=== PATIENT | male | born 1980 | race Caucasian/White ===

== ENCOUNTER → 2017-12-11 11:12 | Outpatient (CLI) | payer BC, SELFPAY ==
[2017-12-11 18:37] LABS: Basophils % 0.4 % (0.1-2.0); Eosinophils # 0.2 K/mm3 (0.0-0.4); Eosinophils % 2.4 % (0.1-12.0); Hematocrit 47.9 % (42.0-52.0); Hemoglobin 16.3 g/dL (14.1-18.0); Lymphocytes # 1.3 K/mm3 (0.7-4.5); Lymphocytes % 20.8 K/mm3 (10-50); Mean Corpuscular HGB Conc 34.1 g/dL (31.8-35.4); Mean Corpuscular Hemoglobin 30.8 pg (27.0-31.2); Mean Corpuscular Volume 90.4 fl (80-94); Mean Platelet Volume 9.8 fl (7.4-10.4); Monocytes # 0.5 K/mm3 (0.1-1.0); Monocytes % 7.9 % (1.7-9.3); Neutrophils # 4.3 K/mm3 (1.8-7.8); Neutrophils % 68.5 % (37.0-80.0); Platelet Count 229 K/mm3 (142-424); Red Blood Count 5.29 M/mm3 (4.60-6.20); Red Cell Distribution Width 12.2 % (11.5-17.5); White Blood Count 6.3 K/mm3 (4.8-10.8)
[2017-12-11 18:51] LABS: Alanine Aminotransferase 66 U/L (12-78); Albumin Level 4.7 gm/dL (3.4-5.0); Albumin/Globulin Ratio 1.5 (1.1-1.8); Alkaline Phosphatase 56 U/L (46-116); Anion Gap 13.7 mEq/L (5-15); Aspartate Amino Transferase 26 U/L (15-37); Bilirubin,Total 0.6 mg/dL (0.2-1.0); Blood Urea Nitrogen 18 mg/dL (7-18); Carbon Dioxide 28 mmol/L (21.0-32.0); Chloride 105 mmol/L (98-107); Chol/HDL Ratio 4.4 (1-3.5); Cholesterol 170 mg/dL (140-200); Creatinine,Serum 1.04 mg/dL (0.70-1.30); Estimated Glomerular Filt Rate 80 ml/min (>60); Free Thyroxine Index 3.4 ug/dL (5.93-13.13); GFR (African American) 96 ML/MIN (>60); Globulin 3.2 gm/dl (1.3-3.2); Glucose 85 mg/dL (74-106); HDL Cholesterol 39 mg/dL (27-67); LDL Cholesterol 99 mg/dL (0-130); Potassium 4.7 mmoL/L (3.5-5.1); Sodium 142 mmol/L (136-145); T4 (Thyroxine) 9.7 ug/dl (4.7-13.3); Thyroid Stimulating Hormone 2.04 uIU/ml (0.358-3.740); Total Protein,Serum 7.9 gm/dL (6.4-8.2); Triglycerides 161 mg/dL (30-200); Triiodothryronine (T3) Uptake 35 % (31-39); VLDL Cholesterol 32 mg/dL (0-40)
[2017-12-16 06:13] LABS: Vitamin B12 534 pg/mL (232-1245)
[2017-12-16 06:14] LABS: Vitamin D 25 Hydroxy 22.5 ng/mL (30.0-100.0)
== END ==
PROVIDERS: Visit Provider Nurse Practitioner Family
DX: R53.83 Other fatigue (principal)
CPT/HCPCS: 80053; 80061; 82607; 82652; 84436; 84443; 84479; 85025

== ENCOUNTER → 2018-05-05 08:00 | Outpatient (CLI) | payer BC, SELFPAY ==
[2018-05-07 11:19] LABS: Occult Blood,Stool Negative (Negative)
== END ==
PROVIDERS: PCP Nurse Practitioner Family; Visit Provider Nurse Practitioner Family
DX: Z12.11 Encounter for screening for malignant neoplasm of colon (principal)
CPT/HCPCS: 82272; G0328

== ENCOUNTER → 2018-05-06 08:00 | Outpatient (CLI) | payer BC, SELFPAY ==
[2018-05-07 11:18] LABS: Occult Blood,Stool Negative (Negative)
== END ==
PROVIDERS: PCP Nurse Practitioner Family; Visit Provider Nurse Practitioner Family
DX: Z12.11 Encounter for screening for malignant neoplasm of colon (principal)
CPT/HCPCS: 82272; G0328

== ENCOUNTER → 2018-05-07 10:19 | Outpatient (CLI) | payer BC, SELFPAY ==
[2018-05-07 11:18] LABS: Occult Blood,Stool Negative (Negative)
== END ==
PROVIDERS: PCP Nurse Practitioner Family; Visit Provider Nurse Practitioner Family
DX: Z12.11 Encounter for screening for malignant neoplasm of colon (principal)
CPT/HCPCS: 82272; G0328

== ENCOUNTER → 2018-12-29 17:58 | Outpatient (CLI) | payer BC, SELFPAY ==
[2018-12-29 18:41] LABS: Basophils % 0.4 % (0.1-2.0); Eosinophils # 0.1 K/mm3 (0.0-0.4); Eosinophils % 2.4 % (0.1-12.0); Hematocrit 45.2 % (42.0-52.0); Hemoglobin 15.9 g/dL (14.1-18.0); Lymphocytes # 1.5 K/mm3 (0.7-4.5); Mean Corpuscular HGB Conc 35.2 g/dL (31.8-35.4); Mean Corpuscular Hemoglobin 30.6 pg (27.0-31.2); Mean Corpuscular Volume 86.9 fl (80-94); Mean Platelet Volume 9.9 fl (7.4-10.4); Monocytes # 0.4 K/mm3 (0.1-1.0); Monocytes % 8.6 % (1.7-9.3); Neutrophils # 2.9 K/mm3 (1.8-7.8); Neutrophils % 58.7 % (37.0-80.0); Platelet Count 236 K/mm3 (142-424); Red Cell Distribution Width 12.3 % (11.5-17.5)
[2018-12-29 19:07] LABS: Alanine Aminotransferase 93 U/L (12-78); Albumin Level 4.5 gm/dL (3.4-5.0); Albumin/Globulin Ratio 1.4 (1.1-1.8); Alkaline Phosphatase 54 U/L (46-116); Aspartate Amino Transferase 25 U/L (15-37); Bilirubin,Total 0.5 mg/dL (0.2-1.0); Blood Urea Nitrogen 15 mg/dL (7-18); Calcium 9.1 mg/dL (8.5-10.1); Carbon Dioxide 25 mmol/L (21.0-32.0); Chloride 106 mmol/L (98-107); Chol/HDL Ratio 4.9 (1-3.5); Cholesterol 173 mg/dL (140-200); Estimated Glomerular Filt Rate 67 ml/min (>60); GFR (African American) 81 ML/MIN (>60); Globulin 3.2 gm/dl (1.3-3.2); Glucose 110 mg/dL (74-106); HDL Cholesterol 35 mg/dL (27-67); LDL Cholesterol 75 mg/dL (0-130); Sodium 141 mmol/L (136-145); T4 (Thyroxine) 8.1 ug/dl (4.7-13.3); Thyroid Stimulating Hormone 3.91 uIU/ml (0.358-3.740); Total Protein,Serum 7.7 gm/dL (6.4-8.2); Triglycerides 313 mg/dL (30-200); VLDL Cholesterol 63 mg/dL (0-40)
[2018-12-31 10:39] LABS: PSA, Free 0.28 ng/mL; Testosterone,Total 205 ng/dL (264-916); Vitamin D 25 Hydroxy 22.6 ng/mL (30.0-100.0)
[2018-12-31 17:25] LABS: Hemoglobin A1C 5.2 % (0.0-7.0)
== END ==
PROVIDERS: Visit Provider Nurse Practitioner Family
DX: E07.9 Disorder of thyroid, unspecified (principal); R53.83 Other fatigue; E78.1 Pure hyperglyceridemia; R73.9 Hyperglycemia, unspecified
CPT/HCPCS: 80053; 80061; 82652; 83036; 84153; 84154; 84403; 84436; 84443; 85025

== ENCOUNTER → 2019-02-02 07:10 | Outpatient (CLI) | payer BC, SELFPAY ==
[2019-02-03 08:17] LABS: FSH 5.4 mIU/mL (1.5-12.4); LH 4.6 mIU/mL (1.7-8.6)
[2019-02-03 18:57] LABS: Prolactin 9.4 ng/mL (4.0-15.2)
== END ==
PROVIDERS: Visit Provider Urology
DX: R79.89 Other specified abnormal findings of blood chemistry (principal)
CPT/HCPCS: 36415; 83001; 83002; 84146; 84403

== ENCOUNTER → 2019-04-06 18:27 | Outpatient (CLI) | payer BC, SELFPAY ==
[2019-04-06 21:05] LABS: T4 (Thyroxine) 9.8 ug/dl (4.7-13.3); Thyroid Stimulating Hormone 2.66 uIU/ml (0.358-3.740)
[2019-04-08 09:47] LABS: Vitamin D 25 Hydroxy 38.5 ng/mL (30.0-100.0)
== END ==
PROVIDERS: Visit Provider Nurse Practitioner Family
DX: E07.9 Disorder of thyroid, unspecified (principal); E55.9 Vitamin D deficiency, unspecified
CPT/HCPCS: 82652; 84436; 84443

== ENCOUNTER → 2020-03-02 16:55 | Outpatient (CLI) | payer BC, SELFPAY ==
[2020-03-02 17:44] LABS: Chloride 103 mmol/L (98-107); Sodium 140 mmol/L (136-145)
[2020-03-02 17:45] LABS: Potassium 3.9 mmoL/L (3.5-5.1)
[2020-03-02 17:47] LABS: Alanine Aminotransferase 39 U/L (12-78); Albumin Level 4.7 g/dl (3.5-5.0); Albumin/Globulin Ratio 1.8 (1.1-1.8); Alkaline Phosphatase 39 U/L (38-126); Anion Gap 15.9 mEq/L (5-15); Aspartate Amino Transferase 27 U/L (17-59); Bilirubin,Total 0.7 mg/dl (0.2-1.3); Blood Urea Nitrogen 14 mg/dl (9-20); Calcium 9.6 mg/dl (8.4-10.2); Carbon Dioxide 25 mmol/L (22.0-30.0); Cholesterol 176 mg/dl (140-200); Estimated Glomerular Filt Rate 82 ml/min (>60); GFR (African American) 99 ML/MIN (>60); Globulin 2.6 g/dL (1.3-3.2); Glucose 119 mg/dl (74-100); Total Protein,Serum 7.3 g/dl (6.3-8.2); Triglycerides 199 mg/dl (30-150); VLDL Cholesterol 40 mg/dL (0-40)
[2020-03-02 17:48] LABS: Chol/HDL Ratio 4.1 (1-3.5); HDL Cholesterol 43 mg/dl (40-60)
[2020-03-02 17:58] LABS: Direct LDL Cholesterol 115.79 mg/dL (100-129)
[2020-03-02 18:05] LABS: Basophils % 0.5 % (0.1-2.0); Eosinophils # 0.3 K/mm3 (0.0-0.4); Eosinophils % 5.9 % (0.1-12.0); Lymphocytes # 1.2 K/mm3 (0.7-4.5); Lymphocytes % 23.2 % (10-50); Mean Corpuscular HGB Conc 34.7 g/dL (31.8-35.4); Mean Corpuscular Hemoglobin 30.8 pg (27.0-31.2); Mean Corpuscular Volume 88.7 fl (80-94); Mean Platelet Volume 10.1 fl (7.4-10.4); Monocytes # 0.3 K/mm3 (0.1-1.0); Monocytes % 5.9 % (1.7-9.3); Neutrophils # 3.4 K/mm3 (1.8-7.8); Neutrophils % 64.6 % (37.0-80.0); Platelet Count 198 K/mm3 (142-424); Red Blood Count 5.52 M/mm3 (4.60-6.20); Red Cell Distribution Width 12.7 % (11.5-17.5); T4 (Thyroxine) 7.5 ug/dl (5.53-11.0); White Blood Count 5.2 K/mm3 (4.8-10.8)
[2020-03-02 18:19] LABS: Thyroid Stimulating Hormone 2.13 uIU/mL (0.465-4.68)
== END ==
PROVIDERS: Visit Provider Nurse Practitioner Family
DX: E07.9 Disorder of thyroid, unspecified (principal); E66.9 Obesity, unspecified
CPT/HCPCS: 80053; 80061; 84436; 84443; 85025

== ENCOUNTER → 2020-03-30 17:23 | Outpatient (CLI) | payer BC, SELFPAY ==
[2020-03-30 18:10] LABS: 25-OH Vitamin D, Total 35.5 ng/mL (30-100)
[2020-03-30 18:58] LABS: Hemoglobin A1C 5.1 % (4.0-6.0)
== END ==
PROVIDERS: Visit Provider Nurse Practitioner Family
DX: R73.9 Hyperglycemia, unspecified (principal); E55.9 Vitamin D deficiency, unspecified
CPT/HCPCS: 82306; 83036

== ENCOUNTER 2021-05-26 12:41 | Emergency (ER) | payer BC, SELFPAY ==
[2021-05-26 13:11] VITALS: BP 135/79; PULSE 75; RESP 16; TEMP 36.8; O2SAT 97; BMI 31.8
[2021-05-26 13:16] VITALS: BP 135/79; PULSE 75; RESP 16; TEMP 36.8
--- NOTE | 2021-05-26 13:21 | HMH.EDUTC ---
[facility] [place] Disposition Clinical Impression: Sinusitis Qualifiers: Sinusitis location: unspecified location Chronicity: acute Recurrence: non-recurrent Qualified Code(s): J01.90 - Acute sinusitis, unspecified Otitis media Qualifiers: Otitis media type: suppurative Chronicity: acute Laterality: left Recurrence: non-recurrent Spontaneous tympanic membrane rupture: without spontaneous rupture Qualified Code(s): H66.002 - Acute suppurative otitis media without spontaneous rupture of ear drum, left ear Disposition: Home, Self-Care Condition on Discharge: Good Instructions: Middle Ear Infection, DI for Sinusitis Additional Instructions: Drink plenty of fluids. Take tylenol or ibuprofen for pain or fever. Take the medications as directed. Follow up with your regular doctor. GO TO THE ER FOR ANY WORSENING SYMPTOMS Prescriptions: Amoxicillin/Potassium Clav [Augmentin 875-125 Tablet] 1 tab PO Q12H 10 Days #20 tab Transmission Status: Received by [id number] predniSONE [Prednisone 20mg Tab] 20 mg PO BID 4 Days #8 tab Transmission Status: Received by [id number] Referrals: Tirso Weston APRN [Primary Care Provider] - Time of Disposition: 13:26 Medical Decision Making - Medical Records Medical records reviewed: No: I reviewed the patient's medical records. - Nilo Inquiry Pt receiving controlled substance: No Vital Signs: 05/26/21 13:11 05/26/21 13:16 Temperature 98.2 F 98.2 F Temperature Source Oral Pulse Rate 75 Pulse Rate [Left] 75 Respiratory Rate 16 16 Blood Pressure 135/79 Blood Pressure [Right Arm] 135/79 Blood Pressure Mean [Right Arm] 97 02 Sat by Pulse Oximetry 97 [facility] [place] HPI - General Stated complaint: ear pain Time Seen by Provider: 05/26/21 13:21 Mode of Arrival: Ambulatory Source of Information: Patient Limitations: No Limitations Description of Symptoms (Recalled from Triage Doc. by RN): pt c/o L ear ache HEENT Symptoms (Recalled from RN notes): Yes (L ear ache) Resp Symptoms (Recalled from RN notes): No Skin Symptoms (Recalled from RN notes): No MS Symptoms (Recalled from RN notes): No Functional Status (Recalled from RN notes): na - History of Present Illness Provider Complaint: He c/o left ear pain and sinus congestion for the past 2 days. He gets sinus infections this time of year usually. He denies any fever or chills. - Related Data Previous Rx's Medication Instructions Recorded fluticasone propionate 50 See Rx Instructions .ROUTE 03/12/21 mcg/actuation nasal .COMPLEX #16 gram spray,suspension bupropion HCl 75 mg tablet See Rx Instructions .ROUTE 05/08/21 .COMPLEX #30 tab levothyroxine 75 mcg tablet See Rx Instructions .ROUTE 05/08/21 .COMPLEX #30 tab Amoxicillin/Potassium Clav 1 tab PO Q12H 10 Days #20 tab 05/26/21 [Augmentin 875-125 Tablet] predniSONE [Prednisone 20mg 20 mg PO BID 4 Days #8 tab 05/26/21 Tab] Allergies Allergy/AdvReac Type Severity Reaction Status Date / Time No Known Allergies Allergy Verified 03/30/20 14:12 - Worker's Comp Is this a Worker's Comp case?: No [facility] History - Hepatitis A Screen Drug use history?: No High risk sexual behaviors?: No History of sexually transmitted infection?: No Currently employed?: No Childcare worker?: No Do you have indoor plumbing?: Yes Do you have electricity?: Yes Attestation statement:: This patient has been screened for Hepatitis A risk factors. I have reviewed the patient's past medical history: Yes Other Medical History: Reports: Hypothyroidism, Other (Seasonal allergies (Fall/Winter)) Comment: THYROID ISSUES, BACK PAIN Other Surgeries: Yes: No Previous Surgery Amputation: No Fractures: Yes Comment: NASAL CAVITY - Social History Smoking Status: Unknown if ever smoked Tobacco Type: smokeless tobacco # Packs/Day (cigarettes): 0 Alcohol Intake: never Substance Use Type: denies use Occupational Status: employed Housing: [facility]
== END 2021-05-26 13:46 | disposition home or self-care (01) ==
PROVIDERS: Emergency Provider Nurse Practitioner Family; PCP Nurse Practitioner Family
DX: J01.90 Acute sinusitis, unspecified (principal); H66.002 Acute suppurative otitis media without spontaneous rupture of ear drum, left ear
CPT/HCPCS: 99202; G0463

== ENCOUNTER → 2021-08-14 16:11 | Outpatient (CLI) | payer BC, SELFPAY | PROVIDERS: Visit Provider Nurse Practitioner | DX: Z20.822 Contact with and (suspected) exposure to COVID-19 (principal) | CPT/HCPCS: C9803; U0003; U0005 ==

== ENCOUNTER 2021-08-22 10:58 | Emergency (ER) | payer BC, SELFPAY ==
[2021-08-22 11:39] VITALS: BP 129/79; PULSE 103; RESP 14; TEMP 37.3; O2SAT 97; BMI 31.1
--- NOTE | 2021-08-22 12:16 | HMH.EDUTC ---
[facility] – [place] Disposition Clinical Impression: Viral syndrome Low back pain Qualifiers: Chronicity: acute Back pain laterality: bilateral Sciatica presence: with sciatica Sciatica laterality: sciatica of right side Qualified Code(s): M54.41 - Lumbago with sciatica, right side Disposition: Home, Self-Care Condition on Discharge: Good Instructions: DI for Low Back Pain, DI for COVID-19 (Suspected or Confirmed ), Preventing the Spread of Coronavirus Discharge Instructions Additional Instructions: Go home and rest. It would be best if you rested tomorrow too. No heavy lifting. No twisting. Take the oral medications as directed. The muscle relaxer (cyclobenzaprine--Flexeril) will make you drowsy, so don't drive or operate heavy machinery after taking it. Don't start the oral steroids (medrol dose pack) until tomorrow, since you had the shots in here today. Follow up with your regular doctor. GO TO THE ER FOR ANY WORSENING SYMPTOMS OR CONCERN, ESPECIALLY BOWEL OR BLADDER ISSUES, SADDLE AREA NUMBNESS, FEVER, ETC Quarantine until you know the results of your covid-19 test. If it is positive, the health department should call you and give you further instructions about your length of Quarantine and other things. Notify your school or workplace of your results and follow their instructions regarding return to work/school. Prescriptions: Cyclobenzaprine HCl [Cyclobenzaprine 10mg Tab] 10 mg PO BIDP PRN #20 tab PRN Reason: Muscle Spasm Transmission Status: Received by [facility] methylPREDNISolone [Medrol] 4 mg PO DIRECTED 6 Days #21 packet Transmission Status: Received by [facility] Referrals: Tirso Weston APRN [Primary Care Provider] - Time of Disposition: 13:10 Medical Decision Making - Medical Records Medical records reviewed: No: I reviewed the patient's medical records. - Nilo Inquiry Pt receiving controlled substance: No Vital Signs: 08/22/21 11:39 08/22/21 12:58 Temperature 99.2 F 99.2 F Temperature Source Oral Pulse Rate 103 H Pulse Rate [Left] 103 H Respiratory Rate 14 14 Blood Pressure 129/79 Blood Pressure [Right Arm] 129/79 Blood Pressure Mean [Right Arm] 95 02 Sat by Pulse Oximetry 97 - Lab Data Lab Results 08/22/21 12:24: Influenza Type A Ag Negative, Influenza Type B Ag Negative 08/22/21 12:24: Strep Scn [facility] Negative Orders (Tests/Meds): ED MEDICATIONS Discontinued Medications Generic Name Dose Route Start Last Admin Trade Name Jovanny PRN Reason Stop Dose Admin Ketorolac Tromethamine 60 mg 08/22/21 12:34 08/22/21 12:51 Ketorolac 60mg/2ml Vial IM 08/22/21 12:35 60 mg ONCE ONE Administration Methylprednisolone Sodium Succinate 125 mg 08/22/21 12:34 08/22/21 12:51 Methylprednisolone Sod Succ 125mg Vial IM 08/22/21 12:35 125 mg ONCE ONE Administration ORDERS Category Date Time Status Covid-19 Nasal PCR ([facility]) Routine Lab 08/22/21 11:42 Received Strep Screen Confirmation Stat Micro 08/22/21 12:24 Received [facility] UTC HPI - General Stated complaint: cold like symptoms,low back pain Time Seen by Provider: 08/22/21 12:16 Mode of Arrival: Ambulatory Source of Information: Patient Limitations: No Limitations Description of Symptoms (Recalled from Triage Doc. by RN): pt c/o back pain, weakness and body aches. pt states he was moving wood and his back flares up occasionally. pt states he generally gets shots and then feels better. pt was also exposed to covid last week. HEENT Symptoms (Recalled from RN notes): No Resp Symptoms (Recalled from RN notes): No Skin Symptoms (Recalled from RN notes): No MS Symptoms (Recalled from RN notes): Yes Functional Status (Recalled from RN notes): wnl - History of Present Illness Provider Complaint: He states that he twisted wrong yesterday and started having low back pain that radiates down his right leg. He has a history having episodes of low back
[2021-08-22 12:41] LABS: UTC Strep Screen (Rapid) Negative (Negative)
[2021-08-22 12:42] LABS: UTC Influenza A Antigen Negative (Negative); UTC Influenza B Antigen Negative (Negative)
[2021-08-22 12:58] VITALS: BP 129/79; PULSE 103; RESP 14; TEMP 37.3
== END 2021-08-22 13:24 | disposition home or self-care (01) ==
LOC: UTC 11:01
PROVIDERS: Emergency Provider Nurse Practitioner Family; PCP Nurse Practitioner Family
DX: M54.41 Lumbago with sciatica, right side (principal); B34.9 Viral infection, unspecified; U07.1 COVID-19
CPT/HCPCS: 87804; 87880; 96372; 99202; C9803; G0463; U0003; U0005

== ENCOUNTER → 2021-08-30 16:55 | Outpatient (CLI) | payer BC, SELFPAY ==
[2021-08-30 17:59] LABS: Basophils # 0.1 K/mm3 (0-0.2); Basophils % 1.5 % (0.1-2.0); Eosinophils # 0.2 K/mm3 (0.0-0.4); Eosinophils % 3.1 % (0.1-12.0); Hematocrit 54.5 % (42.0-52.0); Lymphocytes # 1.6 K/mm3 (0.7-4.5); Lymphocytes % 27.2 % (10-50); Mean Corpuscular HGB Conc 34.7 g/dL (31.8-35.4); Mean Platelet Volume 10.1 fl (7.4-10.4); Monocytes # 0.5 K/mm3 (0.1-1.0); Monocytes % 7.7 % (1.7-9.3); Neutrophils # 3.6 K/mm3 (1.8-7.8); Neutrophils % 60.5 % (37.0-80.0); Platelet Count 209 K/mm3 (142-424); Red Blood Count 5.93 M/mm3 (4.60-6.20); Red Cell Distribution Width 12.9 % (11.5-17.5); White Blood Count 5.9 K/mm3 (4.8-10.8)
[2021-08-30 18:03] LABS: Hemoglobin 18.9 g/dL (14.1-18.0)
[2021-08-30 18:24] LABS: Alanine Aminotransferase 63 U/L (12-78); Albumin Level 4.9 g/dl (3.5-5.0); Albumin/Globulin Ratio 1.8 (1.1-1.8); Alkaline Phosphatase 67 U/L (38-126); Anion Gap 14.3 mEq/L (5-15); Aspartate Amino Transferase 33 U/L (17-59); Bilirubin,Total 0.7 mg/dl (0.2-1.3); Blood Urea Nitrogen 15 mg/dl (9-20); Calcium 9.5 mg/dl (8.4-10.2); Carbon Dioxide 28 mmol/L (22.0-30.0); Chloride 99 mmol/L (98-107); Chol/HDL Ratio 6.7 (1-3.5); Cholesterol 227 mg/dl (140-200); Estimated Glomerular Filt Rate 82 ml/min (>60); GFR (African American) 99 ML/MIN (>60); Globulin 2.8 g/dL (1.3-3.2); Glucose 82 mg/dl (74-100); HDL Cholesterol 34 mg/dl (40-60); Potassium 4.3 mmoL/L (3.5-5.1); Sodium 137 mmol/L (136-145); Total Protein,Serum 7.7 g/dl (6.3-8.2)
[2021-08-30 18:39] LABS: Triglycerides 873 mg/dl (30-150)
[2021-08-30 18:42] LABS: 25-OH Vitamin D, Total 25.4 ng/mL (30-100)
[2021-08-30 18:57] LABS: Thyroid Stimulating Hormone 4.48 uIU/mL (0.465-4.68)
== END ==
PROVIDERS: Visit Provider Nurse Practitioner Family
DX: E03.9 Hypothyroidism, unspecified (principal); R53.83 Other fatigue; K59.00 Constipation, unspecified; E55.9 Vitamin D deficiency, unspecified
CPT/HCPCS: 80053; 80061; 82306; 84439; 84443; 85025

== ENCOUNTER → 2021-09-30 16:00 | Outpatient (CLI) | payer BC, SELFPAY ==
[2021-09-30 19:51] LABS: Chol/HDL Ratio 3.5 (1-3.5); Cholesterol 148 mg/dl (140-200); HDL Cholesterol 42 mg/dl (40-60); Triglycerides 168 mg/dl (30-150); VLDL Cholesterol 34 mg/dL (0-40)
[2021-09-30 20:01] LABS: Direct LDL Cholesterol 88.39 mg/dL (100-129)
[2021-09-30 20:42] LABS: Hemoglobin A1C 5.3 % (4.0-6.0)
== END ==
PROVIDERS: Visit Provider Nurse Practitioner Family
DX: E78.2 Mixed hyperlipidemia (principal)
CPT/HCPCS: 80061; 83036